=== PATIENT | female | born 1940 | race Caucasian/White ===

== ENCOUNTER → 2018-03-23 | Day surgery (SDC) | payer OTHER ==
[~2018-03-23] MED LIST: ACETAMINOPHEN 1000 MG/100 ML 100 ML IV ONE; BUPIVACAINE/EPINEPHRINE 0.25% PF 10 ML VIAL ONE; CIPROFLOXACIN 400 MG PREMIX 200 ML ONE; CYCLOBENZAPRINE HCL 10 MG TAB ONE; FLUO60TA PO; KETOROLAC TROMETHAMINE 30 MG/ML (IVP) VIAL IV PUSH ONE; LACTATED RINGER'S 1000 ML INJ 1,000 ML ONE; LEVO88TA2 PO; MIDAZOLAM HCL 2 MG/2 ML VIAL ONE; MORPHINE SULFATE 2 MG/ML SYRINGE ONE; NORC7.5T PO; ONDANSETRON HCL 4 MG/2 ML VIAL IV PUSH ONE; PROPOFOL 200 MG/20 ML AMP IV ONE; SIMV40TA PO; VANCOMYCIN HCL 1000 MG VIAL ONE
--- NOTE | 2018-03-24 00:08 | MP ---
cc: Gregor Garcia MD, Sunil P MD Jackson,Daniel Saleem MD DATE OF OPERATION: 03/23/2018 PROCEDURES PERFORMED: 1. Laparoscopic cholecystectomy. 2. Laparoscopic Beni-Cut liver biopsy x 3. 3. Primary repair of umbilical hernia. PREOPERATIVE DIAGNOSIS: Cholelithiasis with dilated biliary duct and elevated liver function tests. POSTOPERATIVE DIAGNOSIS: Cholelithiasis with a dilated biliary duct and elevated liver function tests. Umbilical hernia, reducible. ANESTHESIA: General endotracheal. SURGEON: Gregor Garcia MD ESTIMATED BLOOD LOSS: 10 mL. FLUIDS: 850 mL crystalloid. COMPLICATIONS: None. DRAINS: None. SPECIMENS: 1. Gallbladder and contents. 2. True-Cut liver biopsies x 3 to pathology. PROCEDURE IN DETAIL: The patient was taken to the operating room and placed on the operating table in the supine position. After an adequate level of general endotracheal anesthesia was achieved, the abdomen was prepped and draped in the usual fashion. Timeout was taken, confirming we had the correct patient, site and procedure to be performed. Skin and subcutaneous tissue was infiltrated with local anesthetic and an incision made in the umbilicus and carried through the fascia sharply. The peritoneal cavity was directly visualized. After making the incision in the umbilicus, preperitoneal fat was reduced into the abdominal cavity. With the hernia reduced, a 12 mm balloon trocar was inserted and the balloon inflated. The abdomen was insufflated. The patient was placed in reverse Trendelenburg position. Three 5 mm trocars were then placed, with the first to the right of the falciform ligament and second and third in the right subcostal region. All entered the abdominal cavity under direct vision uneventfully. The fundus of the gallbladder was grasped and retracted upward. The cystic duct-infundibular junction and cystic artery were both circumferentially dissected. The cystic artery was doubly clipped proximally, singly clipped on the gallbladder side and divided. The cystic duct had a small vein running parallel to it and this was singly clipped distally and then divided. The cystic duct was then doubly clipped distally, singly clipped on the gallbladder side and divided. No cholangiogram was obtained, as the patient had a normal MRCP. Gallbladder was then taken off of the liver bed with electrodissection. The gallbladder was placed into an EndoCatch device and removed via the umbilical port while observing via the upper 5 mm trocar site. Specimen was passed off the table. The upper abdomen was revisualized via the umbilical port. Three cores of liver were taken with the Beni-Cut needle that was passed through a separate incision. Each of the biopsy sites were immediately controlled with electrocautery. The cores were placed into formalin immediately and submitted for specimen analysis. The liver bed and the liver capsule were all revisualized and seen to be clean and dry. With hemostasis assured and with the cystic artery stump and cystic duct stump also clean and dry, insufflation was discontinued. The upper abdominal trocars were removed under direct vision. No bleeding was noted from the trocar sites. The laparoscope and umbilical port were removed. The fascia was closed in the umbilicus with both simple interrupted and [id number] 0 Vicryl suture to close the patient's hernia. The remaining local anesthetic was injected into each of the trocar sites. The skin was closed at each of the trocar sites with 4-0 Vicryl in interrupted buried fashion, except for the Beni-Cut needle site. All trocar sites and needle biopsy site were dressed with Steri-Strips. The patient was extubated and taken back to the recovery room in stable condition. She tolerated the procedure well. MD CHRISSY Hodgson/RICHARD , 11:18 PM , 12:07 AM LUCINDA
== END | disposition home or self-care (01) ==
LOC: ESDC 06:32
PROVIDERS: ATTEND Surgery Trauma Surgery
DX: K80.20 Calculus of gallbladder without cholecystitis without obstruction (principal); R94.5 Abnormal results of liver function studies; K42.9 Umbilical hernia without obstruction or gangrene; E11.9 Type 2 diabetes mellitus without complications
CPT/HCPCS: 00750; 00790; 47001; 47562; 49585; 82948; 88304; 88307; 88313; J0131; J0744; J1885; J2250; J2270; J2405; J3010; J3370; J7120